=== PATIENT | female | born 1995 | race African-American/Black ===

== ENCOUNTER 2017-07-16 21:03 | Emergency (ER) | payer BC, OTHER ==
[~2017-07-16] VITALS: Ht 152.4 cm; Wt 81.6 kg
--- NOTE | 2017-07-16 21:41 | PHYS DOC ---
Past Medical History Past Medical History: Asthma, Diabetes-Type II, GERD, Hypertension, Other Additional Past Medical Histor: BLOOD TRANSFUSION (X2) S/P Past Surgical History: Alcohol Use: Occasionally Drug Use: None Adult General Chief Complaint Chief Complaint: HEADACHE HPI HPI Patient is a 22 year old female presents to the ED complaining of headache x 1 day. Took tylenol around 4pm with no relief. Describes the pain as sharp to left side of head. Rates the pain as 9/10. Associated symptoms include nausea. States her mother has had a brain aneurysm. Denies vision changes, vomiting, dizziness, weakness, chest pain, fever or abdominal pain. Review of Systems Review of Systems Constitutional: Denies fever or chills [] Eyes: Denies change in visual acuity, redness, or eye pain [] HENT: Denies nasal congestion or sore throat [] Respiratory: Denies cough or shortness of breath [] Cardiovascular: No additional information not addressed in HPI [] GI: Denies abdominal pain, vomiting, bloody stools or diarrhea [] : Denies dysuria or hematuria [] Musculoskeletal: Denies back pain or joint pain [] Integument: Denies rash or skin lesions [] Neurologic: Complains of headache. Denies focal weakness or sensory changes [] Endocrine: Denies polyuria or polydipsia [] Current Medications Current Medications Current Medications Medications (Trade) Dose Ordered Sig/Chrystal Start Time Stop Time Status Last Admin Dose Admin Acetaminophen/ Butalbital/ Caffeine (Fioricet) 1 tab ONCE ONCE 07/16/17 22:45 07/16/17 22:46 DC 07/16/17 22:53 1 TAB Allergies Allergies Allergies Coded Allergies Type Severity Reaction Last Updated Verified naproxen Allergy Intermediate SWELLING 11/10/15 Yes Latex, Natural Rubber Allergy Mild "HIVES" 07/16/17 Yes amoxicillin Allergy Mild "HIVES" 07/16/17 No Physical Exam Physical Exam Constitutional: Well developed, well nourished, no acute distress, non-toxic appearance. [] HENT: Normocephalic, atraumatic, bilateral external ears normal, oropharynx moist, no oral exudates, nose normal. [] Eyes: PERRLA, EOMI, conjunctiva normal, no discharge. [] Neck: Normal range of motion, no tenderness, supple, no stridor. [] Cardiovascular:Heart rate regular rhythm, no murmur [] Lungs & Thorax: Bilateral breath sounds clear to auscultation [] Abdomen: Bowel sounds normal, soft, no tenderness, no masses, no pulsatile masses. [] Skin: Warm, dry, no erythema, no rash. [] Back: No tenderness, no CVA tenderness. [] Extremities: No tenderness, no cyanosis, no clubbing, ROM intact, no edema. [] Neurologic: Alert and oriented X 3, normal motor function, normal sensory function, no focal deficits noted. [] Psychologic: Affect normal, judgement normal, mood normal. [] Current Patient Data Vital Signs Vital Signs Date Time Temp Pulse Resp B/P (MAP) Pulse Ox O2 Delivery O2 Flow Rate FiO2 07/16/17 22:53 87 16 99 07/16/17 21:18 97.6 132/62 (85) Room Air 97.6 Lab Values Laboratory Tests Test 07/16/17 21:35 07/16/17 21:49 Urine Collection Type Unknown Urine Color Yellow Urine Clarity Clear Urine pH 6.0 Urine Specific [place] 1.025 Urine Protein Negative mg/dL (NEG-TRACE) Urine Glucose (UA) Negative mg/dL (NEG) Urine Ketones (Stick) Negative mg/dL (NEG) Urine Blood Negative (NEG) Urine Nitrite Negative (NEG) Urine Bilirubin Negative (NEG) Urine Urobilinogen Dipstick 1.0 mg/dL (0.2 mg/dL) Urine Leukocyte Esterase Negative (NEG) Urine RBC 0 /HPF (0-2) Urine WBC 1-4 /HPF (0-4) Urine Squamous Epithelial Cells Mod /LPF Urine Bacteria Few /HPF (0-FEW) Urine Mucus Marked /LPF POC Urine HCG, Qualitative Hcg negative (Negative) EKG EKG [] Radiology/Procedures Radiology/Procedures PROCEDURE: CT HEAD WO CONTRAST CT scan of the head without contrast 07/16/2017 Clinical History: Severe headache since earlier in the day. Technique: Unenhanced, contiguous, 5 mm axial sections were obtained through the head. One or more of the following individualized dose reduction techniques were utilized for this study: 1. Automated exposure control. 2. Adjustment of the mA and/or kV according to patient size. 3. Use of iterative reconstruction technique. Findings: The ventricles and sulci are within normal limits in size and configuration. No focal area of abnormal attenuation is seen involving the brain parenchyma. No extra-axial fluid collection is seen. No skull fracture is seen. Impression: Negative study.[] Course & Med Decision Making Course & Med Decision Making Pertinent Labs and Imaging studies reviewed. (See chart for details) []CT negative for acute injury. Patient's headache resolved. No focal neural deficits. Patient talking and laughing on cell phone in room. Discussed lumbar puncture. Patient refused. Discussed follow-up with neurology later this week. Discussed reasons to return to the ED. Patient understands and agrees with plan. Dragon Disclaimer Dragon Disclaimer This electronic medical record was generated, in whole or in part, using a voice recognition dictation system. Departure Departure Impression: Primary Impression: Headache Disposition: 01 HOME, SELF-CARE Condition: IMPROVED Referrals: NO PCP (PCP) GILSON MEREDITH MD Patient Instructions: General Headache Without Cause Scripts Butalb/Acetaminophen/Caffeine ([id number]) 1 Each Capsule 1 EACH PO Q6HRS Y for PAIN, #14 CAP Prov: BUD SOTO 07/16/17 BUD SOTO Jul 16, 2017 21:41
[2017-07-16 21:55] LABS: BILIRUBIN,URINE NEGATIVE (NEG); GLUCOSE,URINE NEGATIVE (NEG); NITRITE,URINE NEGATIVE (NEG); PROTEIN,URINE NEGATIVE (NEG-TRACE)
[2017-07-16 22:06] LABS: BACTERIA,URINE FEW /HPF (0-FEW); RBC,URINE 0 /HPF (0-2); SQUAMOUS EPITHELIAL CELL,UR MOD /LPF
--- NOTE | 2017-07-16 22:28 | RAD ---
CT scan of the head without contrast 07/16/2017 Clinical History: Severe headache since earlier in the day. Technique: Unenhanced, contiguous, 5 mm axial sections were obtained through the head. One or more of the following individualized dose reduction techniques were utilized for this study: 1. Automated exposure control. 2. Adjustment of the mA and/or kV according to patient size. 3. Use of iterative reconstruction technique. Findings: The ventricles and sulci are within normal limits in size and configuration. No focal area of abnormal attenuation is seen involving the brain parenchyma. No extra-axial fluid collection is seen. No skull fracture is seen. Impression: Negative study. Electronically signed by: Cornelio Amin MD (07/16/2017 10:25 PM) [facility]
[2017-07-16] MEDS ORDERED: BUTA1CAP57 PO (22:45)
[2017-07-16] MEDS ORDERED: BUTALB/APAP/CAFEIN 50/325/40MG TABLET. PO ONE (22:45)
[2017-07-16 23:31] VITALS: BP 120/63
== END 2017-07-16 23:31 | disposition home or self-care (01) ==
LOC: ER 21:03
DX: R51 Headache (principal); R11.0 Nausea; J45.909 Unspecified asthma, uncomplicated; E11.9 Type 2 diabetes mellitus without complications; K21.9 Gastro-esophageal reflux disease without esophagitis; I10 Essential (primary) hypertension; Z88.1 Allergy status to other antibiotic agents; Z91.040 Latex allergy status; Z88.8 Allergy status to other drugs, medicaments and biological substances
CPT/HCPCS: 70450; 81001; 81025; 82962; 99285-25

== ENCOUNTER 2017-10-12 23:15 | Emergency (ER) | payer SELFPAY, OTHER ==
[2017-10-12 23:43] LABS: URINE HCG POC HCG NEGATIVE (Negative)
[2017-10-12] MEDS: ONDANSETRON ODT 4 MG TAB.RAPDIS. PO (23:49)
== END 2017-10-13 00:25 | disposition home or self-care (01) ==
LOC: ER 10-13 00:25
DX: G89.18 Other acute postprocedural pain (principal); R10.9 Unspecified abdominal pain; B97.11 Coxsackievirus as the cause of diseases classified elsewhere; O34.219 Maternal care for unspecified type scar from previous cesarean delivery; N85.8 Other specified noninflammatory disorders of uterus; R11.2 Nausea with vomiting, unspecified; M79.1 Myalgia; F12.10 Cannabis abuse, uncomplicated; Z98.890 Other specified postprocedural states; Z87.11 Personal history of peptic ulcer disease; Z88.6 Allergy status to analgesic agent; Z88.1 Allergy status to other antibiotic agents; Z91.040 Latex allergy status
CPT/HCPCS: 81025; 99283; Q0162